=== PATIENT | male | born 1975 | race Caucasian/White ===

== ENCOUNTER → 2016-09-04 | Outpatient (CLI) | payer OTHER | END | disposition home or self-care (01) | LOC: LAB.O 07:31 | PROVIDERS: ATTEND Emergency Medicine | DX: I10 Essential (primary) hypertension (principal); Z13.220 Encounter for screening for lipoid disorders ==

== ENCOUNTER 2017-09-14 16:39 | Emergency (ER) | payer OTHER ==
[2017-09-14] MEDS ORDERED: cefTRIAXone SODIUM 1 GM VIAL IM ONE (17:00)
[2017-09-14] MEDS ORDERED: predniSONE 20 MG TAB PO ONE (17:00)
[2017-09-14] MEDS ORDERED: AZITHROMYCIN 250 MG TAB PO ONE (17:00)
[2017-09-14 17:02] VITALS: TEMP 98.1
--- NOTE | 2017-09-14 17:26 | RAD ---
EXAM DESCRIPTION: Chest,2 Views CLINICAL HISTORY: coarse breath sounds, cough, 3 days COMPARISON: None TECHNIQUE: PA/lateral FINDINGS: Heart size is normal with normal pulmonary vascularity. No pleural effusion or pneumothorax. Lateral view shows infiltrative changes in one of the lower lobes overlying the lower T-spine. On the frontal view, interstitial markings are prominent in the lingula and right middle lobe with partial obscuration of the right heart margin. Lower lobe infiltrate is thought to be on the left, judging from the findings on frontal view. No pneumothorax or pleural effusion. IMPRESSION: Left lower lobe consolidation most consistent with pneumonia. Electronically signed by: Skyler Alvarez MD 09/14/2017 5:25 PM [employer]
[2017-09-14] MEDS ORDERED: OSELTAMIVIR 75 MG CAP PO ONE (17:55)
--- NOTE | 2017-09-14 17:58 | ED.PDOC ---
History of Present Illness - General Chief Complaint: Respiratory Problem Stated Complaint: cough,congestion Time Seen by Provider: 09/14/17 16:48 Source: patient Exam Limitations: no limitations - History of Present Illness Initial Comments: The patient is a 42-year-old male presenting to the emergency room secondary to cough for the last 4 or 5 days. He has had some mild runny nose and a very mild sore throat. He does have some significant anxiety. He does feel somewhat short of breath with activity. No syncopal or near syncope. No chest pain. No palpitations. No history of any congestive heart failure or arrhythmia. Timing/Duration: unsure Severity: moderate Improving Factors: nothing Worsening Factors: nothing Associated Symptoms: cough, loss of appetite, malaise Allergies/Adverse Reactions: Allergies NO KNOWN ALLERGY Allergy (Verified 08/31/12 08:05) Home Medications: Ambulatory Orders Lisinopril 1 tablet PO AM 08/03/12 ALPRAZolam [Xanax] 1 mg PO Q8H PRN 10/16/13 Omeprazole [Prilosec] 40 mg PO BID #0 10/17/13 Amoxicillin & Pot Clavulanate [Augmentin Tab] 875 mg PO BID #10 tab 09/14/17 Azithromycin 500 mg PO DAILY #5 tab 09/14/17 Oseltamivir Capsule [Tamiflu] 75 mg PO BID 5 Days #10 capsule 09/14/17 Sertraline HCl [Zoloft] 50 mg PO DAILY 09/14/17 Review of Systems - Review of Systems Constitutional: States: malaise EENTM: States: nose congestion, throat pain Respiratory: States: cough, short of breath Cardiology: States: no symptoms reported Gastrointestinal/Abdominal: States: no symptoms reported Genitourinary: States: no symptoms reported Musculoskeletal: States: no symptoms reported Skin: States: no symptoms reported Neurological: States: no symptoms reported Endocrine: States: no symptoms reported All other Systems: No Change from Baseline Past Medical History (General) - Patient Medical History Hx Seizures: No Hx Stroke: No Hx Dementia: No Hx Asthma: No Hx of COPD: No Hx Cardiac Disorders: No Hx Congestive Heart Failure: No Hx Pacemaker: No Hx Hypertension: Yes Hx Thyroid Disease: No Hx Diabetes: No Hx Gastroesophageal Reflux: Yes Hx Renal Disease: No Hx Cancer: No Hx of HIV: No Hx Hepatitis C: No Hx MRSA: No - Vaccination History Hx Tetanus, Diphtheria Vaccination: No Hx Influenza Vaccination: No Hx Pneumococcal Vaccination: No - Social History Hx Tobacco Use: Yes Hx Alcohol Use: Yes - occasionally Hx Substance Use: No Hx Substance Use Treatment: No Hx Depression: No Hx Physical Abuse: No Hx Emotional Abuse: No Hx Suspected Abuse: No Family Medical History - Family History Father Living Status: Still Living Hx Family Hypertension: Yes Hx Cardiac Disease: Yes Physical Exam - Physical Exam General Appearance: Alert, Comfortable, No apparent distress Eye Exam: bilateral normal Ears, Nose, Throat: hearing grossly normal, nasal congestion, pharyngeal erythema - mild Neck: non-tender, full range of motion, supple Respiratory: chest non-tender, no respiratory distress, no accessory muscle use , other - the patient does have coarse rhonchi bilaterally Difficult to assess for underlying fine rales. He is moving air well. No wheezes. 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 Influenza is still present in the community however we are unable to test for it at this time. The patient will be covered empirically with Tamiflu for 5 days with the first dose given tonight. He is going to be covered for potential bacterial pathogens with double coverage with Augmentin and azithromycin for the next 5 days. He did receive a dose of azithromycin and Rocephin here tonight. He additionally received 1 dose of oral prednisone. He is oxygenating well, without any current evidence of significant respiratory distress or sepsis. He should follow up with his primary care doctor either later tomorrow or early the day after for reevaluation. ER warnings were given for any significant worsening. He should expect to have symptoms for the next week or so. - Results/Orders Results/Orders: chest x-ray does show a left lower and small right mid lung infiltrate. No evidence of CHF. No pneumothorax. Departure - Departure Clinical Impression: Pneumonia Qualifiers: Pneumonia type: due to unspecified organism Laterality: unspecified laterality Lung location: unspecified part of lung Qualified Code(s): J18.9 - Pneumonia, unspecified organism Disposition: Discharge to Home or Self Care Condition: Fair Departure Forms: ED Discharge - Pt. Copy, Patient Portal Self Enrollment Instructions: DI for Pneumonia -- Adult Diet: regular diet Activity: increase activity as tolerated Referrals: BRIAN SOLO [Primary Care Provider] - 1-2 Days Prescriptions: Amoxicillin & Pot Clavulanate [Augmentin Tab] 875 mg PO BID #10 tab Azithromycin 500 mg PO DAILY #5 tab Oseltamivir Capsule [Tamiflu] 75 mg PO BID 5 Days #10 capsule Home Medications: Ambulatory Orders Lisinopril 1 tablet PO AM 08/03/12 ALPRAZolam [Xanax] 1 mg PO Q8H PRN 10/16/13 Omeprazole [Prilosec] 40 mg PO BID #0 10/17/13 Amoxicillin & Pot Clavulanate [Augmentin Tab] 875 mg PO BID #10 tab 09/14/17 Azithromycin 500 mg PO DAILY #5 tab 09/14/17 Oseltamivir Capsule [Tamiflu] 75 mg PO BID 5 Days #10 capsule 09/14/17 Sertraline HCl [Zoloft] 50 mg PO DAILY 09/14/17 Additional Instructions: the patient's a 42-year-old male presenting to the emergency room with what appears to be a pneumonia primarily of the left lower lung field but also with some scattered mild infiltrates in the right midlung. Influenza is still present in the community however we are unable to test for it at this time. The patient will be covered empirically with Tamiflu for 5 days with the first dose given tonight. He is going to be covered for potential bacterial pathogens with double coverage with Augmentin and azithromycin for the next 5 days. He did receive a dose of azithromycin and Rocephin here tonight. He additionally received 1 dose of oral prednisone. He is oxygenating well, without any current evidence of significant respiratory distress or sepsis. He should follow up with his primary care doctor either later tomorrow or early the day after for reevaluation. ER warnings were given for any significant worsening. He should expect to have symptoms for the next week or so.
[2017-09-14 18:17] VITALS: BP 133/94; O2SAT 96
== END 2017-09-14 18:12 | disposition home or self-care (01) ==
LOC: ER 16:39
DX: J18.9 Pneumonia, unspecified organism (principal); I10 Essential (primary) hypertension; K21.9 Gastro-esophageal reflux disease without esophagitis
CPT/HCPCS: 71046; J0696; J7512; Q0144

== ENCOUNTER 2017-09-16 04:43 | Emergency (ER) | payer OTHER ==
[2017-09-16] MEDS ORDERED: ALBUTEROL INHALER 64 PUFF/8GM INH ONE (05:28)
[2017-09-16] MEDS ORDERED: ONDANSETRON ODT 8 MG TAB SL ONE (05:29)
[2017-09-16] MEDS ORDERED: HYDROcodone 5MG/APAP 325MG 1 EA TAB PO ONE (05:29)
--- NOTE | 2017-09-16 05:32 | ED.PDOC ---
History of Present Illness - General Chief Complaint: General Stated Complaint: Nausea from antibotics taking Time Seen by Provider: 09/16/17 05:28 Source: patient Exam Limitations: no limitations - History of Present Illness Timing/Duration: 4-6 hours Severity: mild Improving Factors: nothing Worsening Factors: medication Associated Symptoms: loss of appetite, nausea/vomiting, other - rt flank pain Allergies/Adverse Reactions: Allergies NO KNOWN ALLERGY Allergy (Verified 09/16/17 04:56) Home Medications: Ambulatory Orders Lisinopril 1 tablet PO AM 08/03/12 ALPRAZolam [Xanax] 1 mg PO Q8H PRN 10/16/13 Omeprazole [Prilosec] 40 mg PO BID #0 10/17/13 Amoxicillin & Pot Clavulanate [Augmentin Tab] 875 mg PO BID #10 tab 09/14/17 Azithromycin 500 mg PO DAILY #5 tab 09/14/17 Oseltamivir Capsule [Tamiflu] 75 mg PO BID 5 Days #10 capsule 09/14/17 Sertraline HCl [Zoloft] 50 mg PO DAILY 09/14/17 Acetaminophen W/ Codeine [Tylenol W/ CODEINE #3] 1 ea PO Q4HR #20 09/16/17 Albuterol Inhaler [Ventolin Hfa Inhaler] 2 puff INH Q4HR #1 inh 09/16/17 Promethazine HCl 25 mg PO Q6HRS #10 tab 09/16/17 Review of Systems - Review of Systems Constitutional: States: chills, diaphoresis, fever. Denies: weakness EENTM: Denies: ear pain, ear discharge, nose pain, nose congestion, throat pain Respiratory: States: cough, short of breath, wheezing. Denies: orthopnea Cardiology: Denies: chest pain, edema, syncope Gastrointestinal/Abdominal: States: nausea, vomiting. Denies: abdominal pain, constipation, diarrhea Genitourinary: Denies: discharge, dysuria Musculoskeletal: States: back pain. Denies: muscle pain, muscle stiffness Skin: Denies: dryness, lesions Neurological: Denies: headache, numbness, paresthesia Endocrine: States: no symptoms reported. Denies: increased hunger, increased thirst, increased urine Hematologic/Lymphatic: States: no symptoms reported All other Systems: Reviewed and Negative Past Medical History (General) - Patient Medical History Hx Seizures: No Hx Stroke: No Hx Dementia: No Hx Asthma: No Hx of COPD: No Hx Cardiac Disorders: No Hx Congestive Heart Failure: No Hx Pacemaker: No Hx Hypertension: Yes Hx Thyroid Disease: No Hx Diabetes: No Hx Gastroesophageal Reflux: Yes Hx Renal Disease: No Hx Cancer: No Hx of HIV: No Hx Hepatitis C: No Hx MRSA: No Surgical History: other - Vaccination History Hx Tetanus, Diphtheria Vaccination: No Hx Influenza Vaccination: No Hx Pneumococcal Vaccination: No - Social History Hx Tobacco Use: No Hx Alcohol Use: Yes Hx Substance Use: No Hx Substance Use Treatment: No Hx Depression: Yes Hx Physical Abuse: No Hx Emotional Abuse: No Hx Suspected Abuse: No - Triage Comment ED Triage Comment: Presents to ED--POV--Amb---C/O was seen here in ER on past Wednesday night and DX with Flu and maybe Pneumonia states and was given antibotics to take and meds are making him nauseated. Family Medical History - Family History Father Living Status: Still Living Hx Family Hypertension: Yes Hx Cardiac Disease: Yes Physical Exam - Physical Exam General Appearance: Alert, Comfortable, Well Developed, Well Groomed, Well Hydrated Eye Exam: left normal Ears, Nose, Throat: hearing grossly normal, normal ENT inspection, normal pharynx Neck: non-tender, full range of motion, supple Respiratory: no respiratory distress, no accessory muscle use, wheezing Cardiovascular/Chest: normal peripheral pulses, no edema, no gallop, no JVD, no murmur Extremity: normal range of motion, normal inspection Neurologic: no motor/sensory deficits, alert, normal mood/affect, oriented x 3 Skin Exam: normal color, warm/dry Progress - Progress Progress: 09/16/17 05:32 here with recent e3val and treatment for pneumonia vrs influenza, started having n/v om the tamiflu and azithro. has been having wheezing and cough and rt flank pain. will put on albulterol, antiemetics, pain meds with strict follow up and return instructions. Departure - Departure Clinical Impression: Rt flank pain, Pneumonia Nausea & vomiting Qualifiers: Vomiting type: unspecified Vomiting Intractability: non-intractable Qualified Code(s): R11.2 - Nausea with vomiting, unspecified Time of Disposition: 05:34 Disposition: Discharge to Home or Self Care Condition: Good Departure Forms: ED Discharge - Pt. Copy, Patient Portal Self Enrollment Instructions: DI for Vomiting -- Adult Diet: regular diet Activity: increase activity as tolerated Referrals: BRIAN SOLO [Primary Care Provider] - 1-5 Days Prescriptions: Acetaminophen W/ Codeine [Tylenol W/ CODEINE #3] 1 ea PO Q4HR #20 Albuterol Inhaler [Ventolin Hfa Inhaler] 2 puff INH Q4HR #1 inh Promethazine HCl 25 mg PO Q6HRS #10 tab Home Medications: Ambulatory Orders Lisinopril 1 tablet PO AM 08/03/12 ALPRAZolam [Xanax] 1 mg PO Q8H PRN 10/16/13 Omeprazole [Prilosec] 40 mg PO BID #0 10/17/13 Amoxicillin & Pot Clavulanate [Augmentin Tab] 875 mg PO BID #10 tab 09/14/17 Azithromycin 500 mg PO DAILY #5 tab 09/14/17 Oseltamivir Capsule [Tamiflu] 75 mg PO BID 5 Days #10 capsule 09/14/17 Sertraline HCl [Zoloft] 50 mg PO DAILY 09/14/17 Acetaminophen W/ Codeine [Tylenol W/ CODEINE #3] 1 ea PO Q4HR #20 09/16/17 Albuterol Inhaler [Ventolin Hfa Inhaler] 2 puff INH Q4HR #1 inh 09/16/17 Promethazine HCl 25 mg PO Q6HRS #10 tab 09/16/17
[2017-09-16] MEDS ORDERED: ALBUTEROL INH (ER DISPENSE) 1 EA INH INH ONE (05:41)
[2017-09-16 05:43] VITALS: TEMP 97.2
[2017-09-16 05:52] VITALS: BP 120/76; O2SAT 95
== END 2017-09-16 05:53 | disposition home or self-care (01) ==
LOC: ER 04:43
DX: J18.9 Pneumonia, unspecified organism (principal); R11.2 Nausea with vomiting, unspecified; R10.9 Unspecified abdominal pain; I10 Essential (primary) hypertension; K21.9 Gastro-esophageal reflux disease without esophagitis